=== PATIENT | female | born 1940 | race Caucasian/White ===

== ENCOUNTER 2019-04-06 04:52 | Inpatient (IN) | payer MEDICARE, OTHER ==
[2019-04-06] MEDS: ONDANSETRON 4 MG INJ IV ×3 (05:10→16:15)
[2019-04-06] MEDS: morphine 2 MG INJ IV ×3 (05:10→21:17)
[2019-04-06 05:16] LABS: ADD MAN DIFF? NO
[2019-04-06 05:18] LABS: BASOPHILS % 0.5 % (0.0-2.0); EOSINOPHILS # 0.1 10^3/ul (0.0-0.5); EOSINOPHILS % 0.8 % (0.0-7.0); HEMATOCRIT 40.5 % (37.0-47.0); HEMOGLOBIN 12.8 g/dl (12.0-16.0); LYMPHOCYTES # 2.3 10^3/ul (0.8-2.9); LYMPHOCYTES % 26.7 % (15.0-51.0); MEAN CORPUSCULAR HEMOGLOBIN 28.1 pg (29.0-33.0); MEAN CORPUSCULAR HGB CONC 31.6 g/dl (32.0-37.0); MEAN CORPUSCULAR VOLUME 88.8 fl (82.0-101.0); MEAN PLATELET VOLUME 8.6 fl (7.4-10.4); MONOCYTE # 0.8 10^3/ul (0.3-0.9); NEUTROPHIL # 5.4 10^3/ul (1.6-7.5); NEUTROPHILS % 61.7 % (39.0-77.0); PLATELET COUNT 249 10^3/UL (140-415); RED BLOOD COUNT 4.56 10^6/ul (4.20-5.40); RED CELL DISTRIBUTION WIDTH 12.9 % (11.5-14.5)
[2019-04-06 05:18] LABS: WHITE BLOOD COUNT 8.8 10^3/ul (4.8-10.8)
[2019-04-06 05:37] LABS: ALANINE AMINOTRANSFERASE 21 IU/L (13-69); ALBUMIN 4.4 g/dl (3.3-4.9); ALBUMIN/GLOBULIN RATIO 1.37; ALKALINE PHOSPHATASE 66 IU/L (42-121); ANION GAP 10 (5-13); ASPARTATE AMINO TRANSFERASE 24 IU/L (15-46); BILIRUBIN,INDIRECT 0.8 mg/dl (0-1.1); BILIRUBIN,TOTAL 0.8 mg/dl (0.2-1.3); BLOOD UREA NITROGEN 18 mg/dl (7-20); CALCIUM 9.9 mg/dl (8.4-10.2); CARBON DIOXIDE 30 mmol/L (21-31); CHLORIDE 102 mmol/L (97-110); CREATININE 0.72 mg/dl (0.44-1.00); GLUCOSE 125 mg/dl (70-220); LIPASE 86 U/L (23-300); POTASSIUM 4.3 mmol/L (3.5-5.1); SODIUM 142 mmol/L (135-144); TOTAL PROTEIN 7.6 g/dl (6.1-8.1)
[2019-04-06 05:48] LABS: TROPONIN-I < 0.012 ng/ml (0.000-0.120)
[2019-04-06] MEDS: morphine 4 MG/ML VIAL IV (08:47)
[2019-04-06] MEDS ORDERED: ONDANSETRON 4 MG INJ IV (09:00)
[2019-04-06] MEDS ORDERED: ACETAMINOPHEN 325 MG TAB PO (09:00)
[2019-04-06] MEDS ORDERED: NACL 0.9% 3 ML SYG IV (10:00)
[2019-04-06] MEDS: LISINOPRIL 20 MG TAB PO (10:48)
[2019-04-06] MEDS: AMLODIPINE 2.5 MG TAB PO (10:48)
[2019-04-06] MEDS: CALCIUM/VITAMIN D (500/200) TAB PO (10:48)
[2019-04-06] MEDS: HYDROCHLOROTHIAZIDE 25 MG TAB PO (10:48)
[2019-04-06] MEDS: ASPIRIN 81 MG TAB PO (10:49)
[2019-04-06] MEDS: HYDROCODONE/APAP (5/325) TAB PO ×2 (10:52→16:54)
[2019-04-06] MEDS: ENOXAPARIN 40 MG/0.4 ML SYG SC (11:00)
[2019-04-06] MEDS ORDERED: NAPROXEN 500 MG TAB PO (11:00)
[2019-04-06 11:01] LABS: HEMOGLOBIN A1C 5.8 % (0-5.9)
[2019-04-06] MEDS: DULOXETINE 30 MG CAP DR PO (12:02)
[2019-04-06] MEDS: ATENOLOL 25 MG TAB PO ×2 (12:03→20:35)
[2019-04-06 14:21] LABS: FREE T4 (FREE THYROXINE) 0.98 ng/dl (0.78-2.44)
[2019-04-06] MEDS: BISACODYL (EC) 5 MG TAB PO (16:54)
[2019-04-06] MEDS: POLYETHYLENE GLYCOL 17 GM PACKET PO (20:34)
[2019-04-06] MEDS: ATORVASTATIN 40 MG TAB PO (20:35)
[2019-04-07] MEDS: ONDANSETRON 4 MG INJ IV ×3 (02:47→16:37)
[2019-04-07] MEDS: ACETAMINOPHEN 325 MG TAB PO ×3 (02:56→22:25)
[2019-04-07 05:03] LABS: ADD MAN DIFF? NO
[2019-04-07 05:06] LABS: BASOPHILS % 0.2 % (0.0-2.0); EOSINOPHILS % 0.1 % (0.0-7.0); HEMOGLOBIN 13.4 g/dl (12.0-16.0); LYMPHOCYTES # 2.7 10^3/ul (0.8-2.9); LYMPHOCYTES % 20.3 % (15.0-51.0); MEAN CORPUSCULAR HEMOGLOBIN 27.8 pg (29.0-33.0); MEAN CORPUSCULAR HGB CONC 31.2 g/dl (32.0-37.0); MEAN CORPUSCULAR VOLUME 89.2 fl (82.0-101.0); MEAN PLATELET VOLUME 8.7 fl (7.4-10.4); MONOCYTE # 0.7 10^3/ul (0.3-0.9); MONOCYTES % 5.4 % (0.0-11.0); NEUTROPHIL # 9.7 10^3/ul (1.6-7.5); NEUTROPHILS % 73.1 % (39.0-77.0); PLATELET COUNT 318 10^3/UL (140-415); RED BLOOD COUNT 4.82 10^6/ul (4.20-5.40); RED CELL DISTRIBUTION WIDTH 12.7 % (11.5-14.5)
[2019-04-07 05:06] LABS: WHITE BLOOD COUNT 13.2 10^3/ul (4.8-10.8)
[2019-04-07 05:19] LABS: ADD UMIC YES; UR ASCORBIC ACID NEGATIVE (NEGATIVE); UR BACTERIA FEW /HPF (NONE SEEN); UR BILIRUBIN (Dip) NEGATIVE (NEGATIVE); UR BLOOD (Dip) 1+ mg/dL (NEGATIVE); UR CLARITY CLEAR (CLEAR); UR COLOR YELLOW (YELLOW); UR GLUCOSE (Dip) NEGATIVE (NEGATIVE); UR KETONES (Dip) NEGATIVE (NEGATIVE); UR LEUKOCYTE ESTERASE (Dip) NEGATIVE Leu/ul (NEGATIVE); UR NITRITE (Dip) NEGATIVE (NEGATIVE); UR RBC 3 /HPF (0-5); UR SPECIFIC GRAVITY (Dip) 1.013 (1.003-1.030); UR TOTAL PROTEIN (Dip) NEGATIVE (NEGATIVE); UR UROBILINOGEN (Dip) NEGATIVE (NEGATIVE); UR WBC 0 /HPF (0-5)
[2019-04-07 05:37] LABS: CHOL/HDL RATIO 3.1 RATIO; LDL CHOLESTEROL,CALCULATED 86 mg/dl
[2019-04-07 05:46] LABS: ANION GAP 13 (5-13)
[2019-04-07 05:47] LABS: ALANINE AMINOTRANSFERASE 20 IU/L (13-69); ALBUMIN 4.9 g/dl (3.3-4.9); ALBUMIN/GLOBULIN RATIO 1.53; ALKALINE PHOSPHATASE 72 IU/L (42-121); ASPARTATE AMINO TRANSFERASE 27 IU/L (15-46); BILIRUBIN,INDIRECT 0.8 mg/dl (0-1.1); BILIRUBIN,TOTAL 0.8 mg/dl (0.2-1.3); BLOOD UREA NITROGEN 13 mg/dl (7-20); CALCIUM 10.2 mg/dl (8.4-10.2); CARBON DIOXIDE 32 mmol/L (21-31); CHLORIDE 91 mmol/L (97-110); CHOLESTEROL 167 mg/dl (100-200); GLUCOSE 168 mg/dl (70-220); HDL CHOLESTEROL 53 mg/dl (33-92); MAGNESIUM 1.7 mg/dl (1.7-2.5); POTASSIUM 3.6 mmol/L (3.5-5.1); SODIUM 136 mmol/L (135-144); TOTAL PROTEIN 8.1 g/dl (6.1-8.1); TRIGLYCERIDES 139 mg/dl (0-149)
[2019-04-07 05:47] LABS: PHOSPHORUS 4.9 mg/dl (2.5-4.9)
[2019-04-07] MEDS: HYDROCHLOROTHIAZIDE 25 MG TAB PO (06:53)
[2019-04-07] MEDS: morphine 2 MG INJ IV (08:54)
[2019-04-07] MEDS: CALCIUM/VITAMIN D (500/200) TAB PO (08:56)
[2019-04-07] MEDS: DULOXETINE 30 MG CAP DR PO (08:57)
[2019-04-07] MEDS: ATENOLOL 25 MG TAB PO ×2 (08:57→20:28)
[2019-04-07] MEDS: AMLODIPINE 2.5 MG TAB PO (08:58)
[2019-04-07] MEDS: ASPIRIN 81 MG TAB PO (08:58)
[2019-04-07] MEDS: POLYETHYLENE GLYCOL 17 GM PACKET PO ×2 (08:58→20:27)
[2019-04-07] MEDS: LISINOPRIL 20 MG TAB PO (08:58)
[2019-04-07] MEDS: ENOXAPARIN 40 MG/0.4 ML SYG SC (09:01)
[2019-04-07] MEDS: MAGNESIUM CITRATE 300 ML BTL PO (11:33)
[2019-04-07] MEDS: KETOROLAC 30 MG INJ IV (12:04)
[2019-04-07] MEDS: NA PHOSPHATE/BIPHOS 133 ML ENEMA PR (14:02)
[2019-04-07] MEDS: hydrALAzine 20 MG INJ IV (16:26)
[2019-04-07] MEDS: FAMOTIDINE 20 MG TAB PO (20:27)
[2019-04-07] MEDS: ATORVASTATIN 40 MG TAB PO (20:27)
[2019-04-08 05:00] LABS: ADD MAN DIFF? NO
[2019-04-08 05:06] LABS: BASOPHILS % 0.2 % (0.0-2.0); EOSINOPHILS # 0.1 10^3/ul (0.0-0.5); EOSINOPHILS % 0.8 % (0.0-7.0); HEMOGLOBIN 12.8 g/dl (12.0-16.0); LYMPHOCYTES # 2.2 10^3/ul (0.8-2.9); LYMPHOCYTES % 23.5 % (15.0-51.0); MEAN CORPUSCULAR HEMOGLOBIN 27.8 pg (29.0-33.0); MEAN CORPUSCULAR VOLUME 86.8 fl (82.0-101.0); MEAN PLATELET VOLUME 8.8 fl (7.4-10.4); MONOCYTE # 0.9 10^3/ul (0.3-0.9); NEUTROPHILS % 65.1 % (39.0-77.0); PLATELET COUNT 266 10^3/UL (140-415); RED BLOOD COUNT 4.61 10^6/ul (4.20-5.40); RED CELL DISTRIBUTION WIDTH 12.8 % (11.5-14.5)
[2019-04-08 05:06] LABS: WHITE BLOOD COUNT 9.3 10^3/ul (4.8-10.8)
[2019-04-08 05:27] LABS: ANION GAP 8 (5-13); BLOOD UREA NITROGEN 18 mg/dl (7-20); CALCIUM 9.6 mg/dl (8.4-10.2); CARBON DIOXIDE 35 mmol/L (21-31); CHLORIDE 92 mmol/L (97-110); CREATININE 0.79 mg/dl (0.44-1.00); GLUCOSE 124 mg/dl (70-220); POTASSIUM 3.5 mmol/L (3.5-5.1); SODIUM 135 mmol/L (135-144)
[2019-04-08 05:28] LABS: PHOSPHORUS 3.9 mg/dl (2.5-4.9)
[2019-04-08 05:28] LABS: MAGNESIUM 2.1 mg/dl (1.7-2.5)
[2019-04-08] MEDS: HYDROCHLOROTHIAZIDE 25 MG TAB PO (06:37)
[2019-04-08] MEDS: morphine 2 MG INJ IV (06:37)
[2019-04-08] MEDS: ONDANSETRON 4 MG INJ IV (06:38)
[2019-04-08] MEDS: DULOXETINE 30 MG CAP DR PO (08:43)
[2019-04-08] MEDS: ASPIRIN 81 MG TAB PO (08:43)
[2019-04-08] MEDS: ATENOLOL 25 MG TAB PO (08:44)
[2019-04-08] MEDS: FAMOTIDINE 20 MG TAB PO ×2 (08:44→21:37)
[2019-04-08] MEDS: AMLODIPINE 2.5 MG TAB PO (08:45)
[2019-04-08] MEDS: LISINOPRIL 20 MG TAB PO (08:45)
[2019-04-08] MEDS: POLYETHYLENE GLYCOL 17 GM PACKET PO ×2 (08:46→21:42)
[2019-04-08] MEDS: ENOXAPARIN 40 MG/0.4 ML SYG SC (08:50)
[2019-04-08] MEDS: CALCIUM/VITAMIN D (500/200) TAB PO (08:54)
[2019-04-08] MEDS: SOD CHLORIDE 0.9% 1,000 ML IV (09:20)
[2019-04-08] MEDS: IOHEXOL 300MG/ML 150 ML BTL (12:43)
[2019-04-08] MEDS: SOD CHLORIDE 0.9% 100 ML (12:44)
[2019-04-08] MEDS: BISACODYL (EC) 5 MG TAB PO (13:03)
[2019-04-08] MEDS: KETOROLAC 30 MG INJ IV (13:10)
[2019-04-08] MEDS: ATORVASTATIN 40 MG TAB PO (21:37)
[2019-04-08] MEDS: ATENOLOL 50 MG TAB PO (21:38)
[2019-04-09] MEDS: KETOROLAC 30 MG INJ IV ×2 (00:53→18:45)
[2019-04-09 05:11] LABS: ADD MAN DIFF? NO
[2019-04-09 05:12] LABS: BASOPHILS % 0.3 % (0.0-2.0); EOSINOPHILS # 0.1 10^3/ul (0.0-0.5); HEMATOCRIT 39.7 % (37.0-47.0); HEMOGLOBIN 12.7 g/dl (12.0-16.0); LYMPHOCYTES # 2.5 10^3/ul (0.8-2.9); MEAN CORPUSCULAR VOLUME 87.4 fl (82.0-101.0); MEAN PLATELET VOLUME 8.8 fl (7.4-10.4); MONOCYTES % 10.2 % (0.0-11.0); NEUTROPHIL # 5.7 10^3/ul (1.6-7.5); PLATELET COUNT 259 10^3/UL (140-415); RED BLOOD COUNT 4.54 10^6/ul (4.20-5.40); RED CELL DISTRIBUTION WIDTH 12.8 % (11.5-14.5)
[2019-04-09 05:12] LABS: WHITE BLOOD COUNT 9.3 10^3/ul (4.8-10.8)
[2019-04-09 05:38] LABS: ALANINE AMINOTRANSFERASE 22 IU/L (13-69); ALBUMIN 3.9 g/dl (3.3-4.9); ALKALINE PHOSPHATASE 57 IU/L (42-121); ANION GAP 9 (5-13); ASPARTATE AMINO TRANSFERASE 24 IU/L (15-46); BILIRUBIN,INDIRECT 0.9 mg/dl (0-1.1); BILIRUBIN,TOTAL 0.9 mg/dl (0.2-1.3); BLOOD UREA NITROGEN 19 mg/dl (7-20); CALCIUM 9.6 mg/dl (8.4-10.2); CARBON DIOXIDE 32 mmol/L (21-31); CHLORIDE 97 mmol/L (97-110); CREATININE 0.75 mg/dl (0.44-1.00); GLUCOSE 109 mg/dl (70-220); POTASSIUM 3.9 mmol/L (3.5-5.1); SODIUM 138 mmol/L (135-144); TOTAL PROTEIN 6.9 g/dl (6.1-8.1)
[2019-04-09 05:44] LABS: PHOSPHORUS 3.9 mg/dl (2.5-4.9)
[2019-04-09 05:44] LABS: MAGNESIUM 2.1 mg/dl (1.7-2.5)
[2019-04-09] MEDS: HYDROCHLOROTHIAZIDE 25 MG TAB PO (06:21)
[2019-04-09] MEDS: SOD CHLORIDE 0.9% 1,000 ML IV ×3 (06:22→22:16)
[2019-04-09] MEDS: CALCIUM/VITAMIN D (500/200) TAB PO (08:56)
[2019-04-09] MEDS: POLYETHYLENE GLYCOL 17 GM PACKET PO ×2 (08:56→21:18)
[2019-04-09] MEDS: ASPIRIN 81 MG TAB PO (08:56)
[2019-04-09] MEDS: FAMOTIDINE 20 MG TAB PO ×2 (08:56→21:18)
[2019-04-09] MEDS: DULOXETINE 30 MG CAP DR PO (08:56)
[2019-04-09] MEDS: LISINOPRIL 20 MG TAB PO (08:57)
[2019-04-09] MEDS: ATENOLOL 50 MG TAB PO ×2 (08:57→21:19)
[2019-04-09] MEDS: AMLODIPINE 2.5 MG TAB PO (08:57)
[2019-04-09] MEDS: ENOXAPARIN 40 MG/0.4 ML SYG SC (08:58)
[2019-04-09] MEDS: HYDROCODONE/APAP (5/325) TAB PO (12:12)
[2019-04-09] MEDS: ATORVASTATIN 40 MG TAB PO (21:18)
[2019-04-10] MEDS: HYDROCODONE/APAP (5/325) TAB PO ×2 (03:46→22:10)
[2019-04-10 05:38] LABS: ADD MAN DIFF? NO
[2019-04-10 05:44] LABS: BASOPHILS % 0.2 % (0.0-2.0); EOSINOPHILS # 0.2 10^3/ul (0.0-0.5); EOSINOPHILS % 1.8 % (0.0-7.0); HEMATOCRIT 37.1 % (37.0-47.0); HEMOGLOBIN 11.8 g/dl (12.0-16.0); LYMPHOCYTES # 2.2 10^3/ul (0.8-2.9); LYMPHOCYTES % 26.4 % (15.0-51.0); MEAN CORPUSCULAR HGB CONC 31.8 g/dl (32.0-37.0); MEAN CORPUSCULAR VOLUME 87.9 fl (82.0-101.0); MEAN PLATELET VOLUME 8.8 fl (7.4-10.4); NEUTROPHIL # 4.9 10^3/ul (1.6-7.5); NEUTROPHILS % 58.9 % (39.0-77.0); PLATELET COUNT 255 10^3/UL (140-415); RED BLOOD COUNT 4.22 10^6/ul (4.20-5.40); RED CELL DISTRIBUTION WIDTH 12.7 % (11.5-14.5)
[2019-04-10 05:44] LABS: WHITE BLOOD COUNT 8.3 10^3/ul (4.8-10.8)
[2019-04-10] MEDS: HYDROCHLOROTHIAZIDE 25 MG TAB PO (06:13)
[2019-04-10 06:19] LABS: PHOSPHORUS 3.4 mg/dl (2.5-4.9)
[2019-04-10 06:52] LABS: ALANINE AMINOTRANSFERASE 23 IU/L (13-69); ALBUMIN 3.6 g/dl (3.3-4.9); ALKALINE PHOSPHATASE 50 IU/L (42-121); ANION GAP 5 (5-13); ASPARTATE AMINO TRANSFERASE 21 IU/L (15-46); BILIRUBIN,INDIRECT 0.7 mg/dl (0-1.1); BILIRUBIN,TOTAL 0.7 mg/dl (0.2-1.3); BLOOD UREA NITROGEN 14 mg/dl (7-20); CARBON DIOXIDE 32 mmol/L (21-31); CHLORIDE 99 mmol/L (97-110); CREATININE 0.66 mg/dl (0.44-1.00); GLUCOSE 108 mg/dl (70-220); POTASSIUM 3.6 mmol/L (3.5-5.1); SODIUM 136 mmol/L (135-144); TOTAL PROTEIN 6.6 g/dl (6.1-8.1)
[2019-04-10] MEDS: ONDANSETRON 4 MG INJ IV (08:43)
[2019-04-10] MEDS: morphine 2 MG INJ IV (08:44)
[2019-04-10] MEDS: CALCIUM/VITAMIN D (500/200) TAB PO (08:44)
[2019-04-10] MEDS: FAMOTIDINE 20 MG TAB PO ×2 (08:44→21:25)
[2019-04-10] MEDS: POLYETHYLENE GLYCOL 17 GM PACKET PO ×2 (08:44→21:00)
[2019-04-10] MEDS: ASPIRIN 81 MG TAB PO (08:44)
[2019-04-10] MEDS: DULOXETINE 30 MG CAP DR PO (08:44)
[2019-04-10] MEDS: BISACODYL (EC) 5 MG TAB PO (08:44)
[2019-04-10] MEDS: LISINOPRIL 20 MG TAB PO (08:48)
[2019-04-10] MEDS: AMLODIPINE 2.5 MG TAB PO (08:48)
[2019-04-10] MEDS: ATENOLOL 50 MG TAB PO ×2 (08:48→21:25)
[2019-04-10] MEDS: ENOXAPARIN 40 MG/0.4 ML SYG SC (08:51)
[2019-04-10] MEDS: KETOROLAC 30 MG INJ IV ×2 (11:01→18:28)
[2019-04-10] MEDS: METOCLOPRAMIDE 10 MG INJ IV ×2 (11:53→17:18)
[2019-04-10] MEDS: LACTULOSE 30ML CUP PO ×4 (13:10→19:00)
[2019-04-10] MEDS: MAGNESIUM CITRATE 300 ML BTL PO (13:58)
[2019-04-10] MEDS: SOD CHLORIDE 0.9% 1,000 ML IV (17:18)
[2019-04-10] MEDS: LUBIPROSTONE 24 MCG CAP PO (21:00)
[2019-04-10] MEDS: ATORVASTATIN 40 MG TAB PO (21:24)
[2019-04-11] MEDS: KETOROLAC 30 MG INJ IV ×2 (04:57→23:13)
[2019-04-11] MEDS: METOCLOPRAMIDE 10 MG INJ IV ×3 (04:57→12:00)
[2019-04-11] MEDS: HYDROCHLOROTHIAZIDE 25 MG TAB PO (04:57)
[2019-04-11 05:13] LABS: ADD MAN DIFF? NO
[2019-04-11 05:29] LABS: WHITE BLOOD COUNT 7.6 10^3/ul (4.8-10.8)
[2019-04-11 05:29] LABS: BASOPHILS % 0.4 % (0.0-2.0); EOSINOPHILS # 0.1 10^3/ul (0.0-0.5); EOSINOPHILS % 1.7 % (0.0-7.0); HEMATOCRIT 39.7 % (37.0-47.0); HEMOGLOBIN 12.4 g/dl (12.0-16.0); LYMPHOCYTES # 1.9 10^3/ul (0.8-2.9); LYMPHOCYTES % 25.3 % (15.0-51.0); MEAN CORPUSCULAR HEMOGLOBIN 27.7 pg (29.0-33.0); MEAN CORPUSCULAR HGB CONC 31.2 g/dl (32.0-37.0); MEAN CORPUSCULAR VOLUME 88.8 fl (82.0-101.0); MEAN PLATELET VOLUME 8.8 fl (7.4-10.4); MONOCYTE # 0.9 10^3/ul (0.3-0.9); NEUTROPHIL # 4.6 10^3/ul (1.6-7.5); NEUTROPHILS % 60.1 % (39.0-77.0); PLATELET COUNT 249 10^3/UL (140-415); RED BLOOD COUNT 4.47 10^6/ul (4.20-5.40); RED CELL DISTRIBUTION WIDTH 12.7 % (11.5-14.5)
[2019-04-11 05:58] LABS: PHOSPHORUS 3.7 mg/dl (2.5-4.9)
[2019-04-11 05:58] LABS: MAGNESIUM 2.3 mg/dl (1.7-2.5)
[2019-04-11 06:14] LABS: ALANINE AMINOTRANSFERASE 21 IU/L (13-69); ALBUMIN 3.7 g/dl (3.3-4.9); ALBUMIN/GLOBULIN RATIO 1.32; ALKALINE PHOSPHATASE 46 IU/L (42-121); ANION GAP 8 (5-13); ASPARTATE AMINO TRANSFERASE 19 IU/L (15-46); BILIRUBIN,INDIRECT 0.8 mg/dl (0-1.1); BILIRUBIN,TOTAL 0.8 mg/dl (0.2-1.3); BLOOD UREA NITROGEN 8 mg/dl (7-20); CALCIUM 8.8 mg/dl (8.4-10.2); CARBON DIOXIDE 29 mmol/L (21-31); CHLORIDE 101 mmol/L (97-110); CREATININE 0.54 mg/dl (0.44-1.00); GLUCOSE 105 mg/dl (70-220); POTASSIUM 3.7 mmol/L (3.5-5.1); SODIUM 138 mmol/L (135-144); TOTAL PROTEIN 6.5 g/dl (6.1-8.1)
[2019-04-11] MEDS: SOD CHLORIDE 0.9% 1,000 ML IV (06:14)
[2019-04-11] MEDS: AMLODIPINE 2.5 MG TAB PO (07:35)
[2019-04-11] MEDS: DULOXETINE 30 MG CAP DR PO (07:35)
[2019-04-11] MEDS: ATENOLOL 50 MG TAB PO ×2 (07:35→20:08)
[2019-04-11] MEDS: POLYETHYLENE GLYCOL 17 GM PACKET PO ×2 (07:35→20:04)
[2019-04-11] MEDS: FAMOTIDINE 20 MG TAB PO ×2 (07:36→20:06)
[2019-04-11] MEDS: LISINOPRIL 20 MG TAB PO (07:36)
[2019-04-11] MEDS: LUBIPROSTONE 24 MCG CAP PO ×2 (07:40→20:06)
[2019-04-11] MEDS: ASPIRIN 81 MG TAB PO (08:38)
[2019-04-11] MEDS: ENOXAPARIN 40 MG/0.4 ML SYG SC (08:38)
[2019-04-11] MEDS: CALCIUM/VITAMIN D (500/200) TAB PO (08:43)
[2019-04-11] MEDS: morphine 2 MG INJ IV ×2 (11:21→20:09)
[2019-04-11] MEDS: HYDROCODONE/APAP (5/325) TAB PO (14:55)
[2019-04-11] MEDS: ATORVASTATIN 40 MG TAB PO (20:06)
[2019-04-12] MEDS: HYDROCHLOROTHIAZIDE 25 MG TAB PO (06:05)
[2019-04-12] MEDS: KETOROLAC 30 MG INJ IV (06:41)
[2019-04-12] MEDS: ATENOLOL 50 MG TAB PO (08:53)
[2019-04-12] MEDS: DULOXETINE 30 MG CAP DR PO (08:53)
[2019-04-12] MEDS: LISINOPRIL 20 MG TAB PO (08:53)
[2019-04-12] MEDS: FAMOTIDINE 20 MG TAB PO (08:53)
[2019-04-12] MEDS: CALCIUM/VITAMIN D (500/200) TAB PO (08:53)
[2019-04-12] MEDS: LUBIPROSTONE 24 MCG CAP PO (08:54)
[2019-04-12] MEDS: ASPIRIN 81 MG TAB PO (08:54)
[2019-04-12] MEDS: AMLODIPINE 5 MG TAB PO (08:54)
[2019-04-12] MEDS: POLYETHYLENE GLYCOL 17 GM PACKET PO (08:54)
[2019-04-12] MEDS: ENOXAPARIN 40 MG/0.4 ML SYG SC (08:58)
[2019-04-12] MEDS: HYDROCODONE/APAP (5/325) TAB PO (12:15)
== END 2019-04-12 13:57 | DRG 552 ==
LOC: E/R 04:52 → MS1 08:51
DX: S22.089A Unspecified fracture of T11-T12 vertebra, initial encounter for closed fracture (principal); K56.7 Ileus, unspecified; E66.01 Morbid (severe) obesity due to excess calories; Z68.38 Body mass index [BMI] 38.0-38.9, adult; I10 Essential (primary) hypertension; E78.5 Hyperlipidemia, unspecified; I25.10 Atherosclerotic heart disease of native coronary artery without angina pectoris; M81.0 Age-related osteoporosis without current pathological fracture; E66.9 Obesity, unspecified; W01.0XXA Fall on same level from slipping, tripping and stumbling without subsequent striking against object, initial encounter; Y93.89 Activity, other specified; Y92.019 Unspecified place in single-family (private) house as the place of occurrence of the external cause; Y99.8 Other external cause status; Z95.1 Presence of aortocoronary bypass graft
CPT/HCPCS: 36415; 70450; 71045; 72100; 72128; 72131; 73080-LT; 74018; 74177; 80048; 80053; 80061; 81001; 83036; 83690; 83735; 84100; 84439; 84443; 84484; 85025; 93005; 96374; 96375; 96376; 97110; 97116; 97161; 97530; 99285-25

== ENCOUNTER 2019-04-12 14:21 | Inpatient (IN) | payer MEDICARE, OTHER ==
[2019-04-12] MEDS ORDERED: HYDROCODONE/APAP (5/325) TAB PO (14:30)
[2019-04-12] MEDS ORDERED: KETOROLAC 30 MG INJ IV (14:30)
[2019-04-12] MEDS ORDERED: BISACODYL (EC) 5 MG TAB PO (15:00)
[2019-04-12] MEDS ORDERED: PENDING SANTYL ORDER FOR WOUND CARE XX (15:00)
[2019-04-12] MEDS: KETOROLAC 30 MG INJ IV (15:16)
[2019-04-12] MEDS: HYDROCODONE/APAP (5/325) TAB PO ×2 (15:33→21:12)
[2019-04-12 16:40] LABS: ADD UMIC YES; UR ASCORBIC ACID NEGATIVE (NEGATIVE); UR BACTERIA FEW /HPF (NONE SEEN); UR BILIRUBIN (Dip) NEGATIVE (NEGATIVE); UR BLOOD (Dip) 1+ mg/dL (NEGATIVE); UR CLARITY CLEAR (CLEAR); UR COLOR YELLOW (YELLOW); UR GLUCOSE (Dip) NEGATIVE (NEGATIVE); UR KETONES (Dip) NEGATIVE (NEGATIVE); UR LEUKOCYTE ESTERASE (Dip) NEGATIVE Leu/ul (NEGATIVE); UR NITRITE (Dip) NEGATIVE (NEGATIVE); UR RBC 2 /HPF (0-5); UR SPECIFIC GRAVITY (Dip) 1.009 (1.003-1.030); UR SQUAMOUS EPITHELIAL CELL FEW /HPF (FEW); UR TOTAL PROTEIN (Dip) NEGATIVE (NEGATIVE); UR UROBILINOGEN (Dip) NEGATIVE (NEGATIVE); UR WBC 0 /HPF (0-5)
[2019-04-12] MEDS: FAMOTIDINE 20 MG TAB PO (21:12)
[2019-04-12] MEDS: ATORVASTATIN 40 MG TAB PO (21:12)
[2019-04-12] MEDS: LUBIPROSTONE 24 MCG CAP PO (21:12)
[2019-04-12] MEDS: POLYETHYLENE GLYCOL 17 GM PACKET PO (21:13)
[2019-04-12] MEDS: ATENOLOL 50 MG TAB PO (21:13)
[2019-04-13] MEDS: HYDROCODONE/APAP (5/325) TAB PO ×3 (04:39→20:06)
[2019-04-13 07:51] LABS: ADD MAN DIFF? NO
[2019-04-13 07:54] LABS: WHITE BLOOD COUNT 8.1 10^3/ul (4.8-10.8)
[2019-04-13 07:54] LABS: BASOPHILS % 0.4 % (0.0-2.0); EOSINOPHILS # 0.2 10^3/ul (0.0-0.5); EOSINOPHILS % 1.8 % (0.0-7.0); HEMATOCRIT 39.1 % (37.0-47.0); HEMOGLOBIN 12.6 g/dl (12.0-16.0); LYMPHOCYTES # 2.4 10^3/ul (0.8-2.9); LYMPHOCYTES % 29.1 % (15.0-51.0); MEAN CORPUSCULAR HEMOGLOBIN 28.1 pg (29.0-33.0); MEAN CORPUSCULAR HGB CONC 32.2 g/dl (32.0-37.0); MEAN CORPUSCULAR VOLUME 87.1 fl (82.0-101.0); MEAN PLATELET VOLUME 8.8 fl (7.4-10.4); MONOCYTE # 0.9 10^3/ul (0.3-0.9); MONOCYTES % 10.6 % (0.0-11.0); NEUTROPHIL # 4.7 10^3/ul (1.6-7.5); NEUTROPHILS % 57.7 % (39.0-77.0); PLATELET COUNT 279 10^3/UL (140-415); RED BLOOD COUNT 4.49 10^6/ul (4.20-5.40); RED CELL DISTRIBUTION WIDTH 12.4 % (11.5-14.5)
[2019-04-13 08:17] LABS: ALANINE AMINOTRANSFERASE 26 IU/L (13-69); ALBUMIN 3.6 g/dl (3.3-4.9); ALBUMIN/GLOBULIN RATIO 1.24; ALKALINE PHOSPHATASE 49 IU/L (42-121); ANION GAP 8 (5-13); ASPARTATE AMINO TRANSFERASE 21 IU/L (15-46); BILIRUBIN,INDIRECT 0.6 mg/dl (0-1.1); BILIRUBIN,TOTAL 0.6 mg/dl (0.2-1.3); BLOOD UREA NITROGEN 14 mg/dl (7-20); CALCIUM 9.6 mg/dl (8.4-10.2); CARBON DIOXIDE 34 mmol/L (21-31); CHLORIDE 95 mmol/L (97-110); CREATININE 0.62 mg/dl (0.44-1.00); GLUCOSE 108 mg/dl (70-220); POTASSIUM 4.4 mmol/L (3.5-5.1); SODIUM 137 mmol/L (135-144); TOTAL PROTEIN 6.5 g/dl (6.1-8.1)
[2019-04-13] MEDS: KETOROLAC 30 MG INJ IV (09:31)
[2019-04-13] MEDS: DULOXETINE 30 MG CAP DR PO (09:39)
[2019-04-13] MEDS: POLYETHYLENE GLYCOL 17 GM PACKET PO ×2 (09:39→20:06)
[2019-04-13] MEDS: ASPIRIN 81 MG TAB PO (09:40)
[2019-04-13] MEDS: LUBIPROSTONE 24 MCG CAP PO ×2 (09:40→20:06)
[2019-04-13] MEDS: CALCIUM/VITAMIN D (500/200) TAB PO (09:40)
[2019-04-13] MEDS: FAMOTIDINE 20 MG TAB PO ×2 (09:40→20:06)
[2019-04-13] MEDS: HYDROCHLOROTHIAZIDE 25 MG TAB PO (09:40)
[2019-04-13] MEDS: LISINOPRIL 20 MG TAB PO (09:41)
[2019-04-13] MEDS: AMLODIPINE 5 MG TAB PO (09:42)
[2019-04-13] MEDS: ATENOLOL 50 MG TAB PO ×2 (09:42→20:09)
[2019-04-13] MEDS: ENOXAPARIN 40 MG/0.4 ML SYG SC (09:43)
[2019-04-13] MEDS ORDERED: BISACODYL 10 MG SUPP PR (11:00)
[2019-04-13] MEDS: ATORVASTATIN 40 MG TAB PO (20:06)
[2019-04-14] MEDS: HYDROCODONE/APAP (5/325) TAB PO ×4 (04:20→21:59)
[2019-04-14] MEDS: DOCUSATE SODIUM 100 MG CAP PO (09:43)
[2019-04-14] MEDS: DULOXETINE 30 MG CAP DR PO (09:43)
[2019-04-14] MEDS: FAMOTIDINE 20 MG TAB PO ×2 (09:43→21:31)
[2019-04-14] MEDS: CALCIUM/VITAMIN D (500/200) TAB PO (09:43)
[2019-04-14] MEDS: ASPIRIN 81 MG TAB PO (09:43)
[2019-04-14] MEDS: LUBIPROSTONE 24 MCG CAP PO ×2 (09:44→21:30)
[2019-04-14] MEDS: POLYETHYLENE GLYCOL 17 GM PACKET PO (09:46)
[2019-04-14] MEDS: AMLODIPINE 5 MG TAB PO (09:47)
[2019-04-14] MEDS: LISINOPRIL 20 MG TAB PO (09:47)
[2019-04-14] MEDS: HYDROCHLOROTHIAZIDE 25 MG TAB PO (09:48)
[2019-04-14] MEDS: ATENOLOL 50 MG TAB PO ×2 (09:48→21:31)
[2019-04-14] MEDS: ENOXAPARIN 40 MG/0.4 ML SYG SC (09:54)
[2019-04-14] MEDS ORDERED: SENNA TAB PO (15:30)
[2019-04-14] MEDS ORDERED: ONDANSETRON 4 MG INJ IV (15:30)
[2019-04-14] MEDS: ATORVASTATIN 40 MG TAB PO (21:30)
[2019-04-14] MEDS: DOCUSATE SODIUM 250 MG CAP PO (21:30)
[2019-04-14] MEDS: PSYLLIUM 28% PACKET PO (21:30)
[2019-04-15] MEDS: HYDROCODONE/APAP (5/325) TAB PO ×3 (05:03→18:40)
[2019-04-15] MEDS: ENOXAPARIN 40 MG/0.4 ML SYG SC (09:33)
[2019-04-15] MEDS: LACTULOSE 30ML CUP PO (09:33)
[2019-04-15] MEDS: ATENOLOL 50 MG TAB PO ×2 (09:34→20:52)
[2019-04-15] MEDS: HYDROCHLOROTHIAZIDE 25 MG TAB PO (09:35)
[2019-04-15] MEDS: PSYLLIUM 28% PACKET PO ×2 (09:35→20:52)
[2019-04-15] MEDS: FAMOTIDINE 20 MG TAB PO ×2 (09:36→20:51)
[2019-04-15] MEDS: LISINOPRIL 20 MG TAB PO (09:36)
[2019-04-15] MEDS: LUBIPROSTONE 24 MCG CAP PO ×2 (09:36→20:51)
[2019-04-15] MEDS: DULOXETINE 30 MG CAP DR PO (09:36)
[2019-04-15] MEDS: DOCUSATE SODIUM 250 MG CAP PO ×2 (09:36→20:52)
[2019-04-15] MEDS: CALCIUM/VITAMIN D (500/200) TAB PO (09:36)
[2019-04-15] MEDS: ASPIRIN 81 MG TAB PO (09:36)
[2019-04-15] MEDS: AMLODIPINE 5 MG TAB PO (09:37)
[2019-04-15] MEDS: MAGNESIUM CITRATE 300 ML BTL PO (15:00)
[2019-04-15] MEDS ORDERED: ONDANSETRON (ODT) 4 MG TAB ODT (16:30)
[2019-04-15] MEDS: ONDANSETRON (ODT) 4 MG TAB ODT (16:47)
[2019-04-15] MEDS: METOCLOPRAMIDE 5 MG TAB PO (17:35)
[2019-04-15] MEDS ORDERED: METOCLOPRAMIDE 10 MG INJ IV (18:00)
[2019-04-15] MEDS: ATORVASTATIN 40 MG TAB PO (20:51)
[2019-04-15] MEDS: SENNA TAB PO (20:53)
[2019-04-16] MEDS: HYDROCODONE/APAP (5/325) TAB PO ×4 (01:02→22:15)
[2019-04-16] MEDS: METOCLOPRAMIDE 5 MG TAB PO ×2 (08:16→12:00)
[2019-04-16] MEDS: ASPIRIN 81 MG TAB PO (08:23)
[2019-04-16] MEDS: DULOXETINE 30 MG CAP DR PO (08:23)
[2019-04-16] MEDS: FAMOTIDINE 20 MG TAB PO ×2 (08:23→22:10)
[2019-04-16] MEDS: CALCIUM/VITAMIN D (500/200) TAB PO (08:23)
[2019-04-16] MEDS: ENOXAPARIN 40 MG/0.4 ML SYG SC (08:24)
[2019-04-16] MEDS: LIDOCAINE 5% PATCH TD (08:26)
[2019-04-16] MEDS: ATENOLOL 50 MG TAB PO ×2 (08:27→22:11)
[2019-04-16] MEDS: LISINOPRIL 20 MG TAB PO (08:27)
[2019-04-16] MEDS: AMLODIPINE 5 MG TAB PO (08:27)
[2019-04-16] MEDS: HYDROCHLOROTHIAZIDE 25 MG TAB PO (08:28)
[2019-04-16] MEDS: LUBIPROSTONE 24 MCG CAP PO ×2 (09:00→22:10)
[2019-04-16] MEDS: PSYLLIUM 28% PACKET PO ×2 (09:00→21:00)
[2019-04-16] MEDS: DOCUSATE SODIUM 250 MG CAP PO ×2 (09:00→22:10)
[2019-04-16] MEDS: ACETAMINOPHEN 325 MG TAB PO (18:36)
[2019-04-16] MEDS: SENNA TAB PO ×2 (21:00→22:10)
[2019-04-16] MEDS: ATORVASTATIN 40 MG TAB PO (22:10)
[2019-04-17] MEDS: HYDROCODONE/APAP (5/325) TAB PO ×3 (05:36→20:05)
[2019-04-17] MEDS: ATENOLOL 50 MG TAB PO ×2 (09:12→20:04)
[2019-04-17] MEDS: ASPIRIN 81 MG TAB PO (09:12)
[2019-04-17] MEDS: LUBIPROSTONE 24 MCG CAP PO ×2 (09:12→20:08)
[2019-04-17] MEDS: DOCUSATE SODIUM 250 MG CAP PO ×2 (09:12→20:02)
[2019-04-17] MEDS: CALCIUM/VITAMIN D (500/200) TAB PO (09:13)
[2019-04-17] MEDS: LISINOPRIL 20 MG TAB PO (09:13)
[2019-04-17] MEDS: AMLODIPINE 5 MG TAB PO (09:13)
[2019-04-17] MEDS: PSYLLIUM 28% PACKET PO ×2 (09:13→20:02)
[2019-04-17] MEDS: FAMOTIDINE 20 MG TAB PO ×2 (09:13→20:02)
[2019-04-17] MEDS: HYDROCHLOROTHIAZIDE 25 MG TAB PO (09:13)
[2019-04-17] MEDS: DULOXETINE 30 MG CAP DR PO (09:14)
[2019-04-17] MEDS: LIDOCAINE 5% PATCH TD (09:14)
[2019-04-17] MEDS: SENNA TAB PO ×3 (09:14→21:00)
[2019-04-17] MEDS: ENOXAPARIN 40 MG/0.4 ML SYG SC (09:15)
[2019-04-17] MEDS: ATORVASTATIN 40 MG TAB PO (20:02)
[2019-04-18] MEDS: HYDROCODONE/APAP (5/325) TAB PO ×4 (02:00→20:34)
[2019-04-18 02:12] LABS: TROPONIN-I < 0.012 ng/ml (0.000-0.120)
[2019-04-18] MEDS ORDERED: NITROGLYCERIN (SL) 0.4 MG TAB SL (03:00)
[2019-04-18] MEDS: LUBIPROSTONE 24 MCG CAP PO ×2 (09:11→20:06)
[2019-04-18] MEDS: DOCUSATE SODIUM 250 MG CAP PO ×2 (09:11→20:05)
[2019-04-18] MEDS: FAMOTIDINE 20 MG TAB PO ×2 (09:11→20:06)
[2019-04-18] MEDS: DULOXETINE 30 MG CAP DR PO (09:11)
[2019-04-18] MEDS: ASPIRIN 81 MG TAB PO (09:11)
[2019-04-18] MEDS: CALCIUM/VITAMIN D (500/200) TAB PO (09:11)
[2019-04-18] MEDS: LISINOPRIL 20 MG TAB PO (09:12)
[2019-04-18] MEDS: HYDROCHLOROTHIAZIDE 25 MG TAB PO (09:13)
[2019-04-18] MEDS: AMLODIPINE 5 MG TAB PO (09:13)
[2019-04-18] MEDS: ATENOLOL 50 MG TAB PO ×2 (09:16→20:06)
[2019-04-18] MEDS: PSYLLIUM 28% PACKET PO ×2 (09:19→20:06)
[2019-04-18] MEDS: ENOXAPARIN 40 MG/0.4 ML SYG SC (09:22)
[2019-04-18] MEDS: LIDOCAINE 5% PATCH TD (09:23)
[2019-04-18] MEDS: ATORVASTATIN 40 MG TAB PO (20:04)
[2019-04-19] MEDS: HYDROCODONE/APAP (5/325) TAB PO ×4 (02:21→17:25)
[2019-04-19] MEDS: PSYLLIUM 28% PACKET PO (09:56)
[2019-04-19] MEDS: LUBIPROSTONE 24 MCG CAP PO (09:57)
[2019-04-19] MEDS: DULOXETINE 30 MG CAP DR PO (09:57)
[2019-04-19] MEDS: DOCUSATE SODIUM 250 MG CAP PO (09:57)
[2019-04-19] MEDS: HYDROCHLOROTHIAZIDE 25 MG TAB PO (09:58)
[2019-04-19] MEDS: ATENOLOL 50 MG TAB PO (09:58)
[2019-04-19] MEDS: CALCIUM/VITAMIN D (500/200) TAB PO (09:58)
[2019-04-19] MEDS: FAMOTIDINE 20 MG TAB PO (09:58)
[2019-04-19] MEDS: LISINOPRIL 20 MG TAB PO (09:59)
[2019-04-19] MEDS: ASPIRIN 81 MG TAB PO (09:59)
[2019-04-19] MEDS: ENOXAPARIN 40 MG/0.4 ML SYG SC (10:00)
[2019-04-19] MEDS: LIDOCAINE 5% PATCH TD (10:00)
[2019-04-19] MEDS: AMLODIPINE 5 MG TAB PO (10:03)
== END 2019-04-19 18:10 | disposition home health service (06) | DRG 560 ==
LOC: VRC 14:21
PROC: F08Z2ZZ Grooming/Personal Hygiene Treatment (ICD-10-PCS; 2019-04-12)
PROC: F08Z1ZZ Dressing Techniques Treatment (ICD-10-PCS; 2019-04-12)
PROC: F08Z0ZZ Bathing/Showering Techniques Treatment (ICD-10-PCS; 2019-04-12)
PROC: F07Z9ZZ Gait Training/Functional Ambulation Treatment (ICD-10-PCS; principal; 2019-04-13)
PROC: F07Z5ZZ Bed Mobility Treatment (ICD-10-PCS; 2019-04-13)
PROC: F07Z8ZZ Transfer Training Treatment (ICD-10-PCS; 2019-04-13)
DX: S22.089D Unspecified fracture of T11-T12 vertebra, subsequent encounter for fracture with routine healing (principal); F33.9 Major depressive disorder, recurrent, unspecified; I25.10 Atherosclerotic heart disease of native coronary artery without angina pectoris; I10 Essential (primary) hypertension; E78.5 Hyperlipidemia, unspecified; E66.9 Obesity, unspecified; M19.90 Unspecified osteoarthritis, unspecified site; G89.11 Acute pain due to trauma; K59.00 Constipation, unspecified; M81.0 Age-related osteoporosis without current pathological fracture; R07.89 Other chest pain; Z68.38 Body mass index [BMI] 38.0-38.9, adult; W19.XXXD Unspecified fall, subsequent encounter; Z95.1 Presence of aortocoronary bypass graft
CPT/HCPCS: 80053; 81001; 84484; 85025; 87081; 87086; 93005; 97110; 97112; 97116; 97150; 97163; 97167; 97530; 97535